=== PATIENT | male | born 1990 | race Asian ===

== ENCOUNTER 2017-04-16 22:44 | Emergency (ER) | payer OTHER ==
[2017-04-16 22:48] VITALS: BP 103/69
--- NOTE | 2017-04-17 02:26 | ED ---
Laceration/Wound HPI - HPI Summary HPI Summary: Patient presents to the ED with laceration to the superior portion of the right eyebrow which measures 2cm. Superficial and without FB. Patient head collided with another person during a jujitsu. Denies LOC or N/V or visual disturbances. Minimal blood loss. Denies other complaints at this time. - History of Current Complaint Stated Complaint: RT EYEBROW LAC Time Seen by Provider: 04/16/17 22:58 Hx Obtained From: Patient Mechanism of Injury: Sharp/Blunt Trauma Onset/Duration: Sudden Onset Aggravating: Movement Alleviating: Nothing Onset Severity: Mild Current Severity: Mild Pain Intensity: 0 Pain Scale Used: 0-10 Numeric Associated Signs & Symptoms: Negative - Allergy/Home Medications Allergies/Adverse Reactions: Allergies Allergy/AdvReac Type Severity Reaction Status Date / Time No Known Allergies Allergy Verified 04/14/16 08:25 PMH/Surg Hx/FS Hx/Imm Hx Previously Healthy: Yes Endocrine/Hematology History: Denies: Hx Diabetes, Hx Thyroid Disease Cardiovascular History: Denies: Hx Hypertension, Hx Pacemaker/ICD Respiratory History: Denies: Hx Asthma, Hx Chronic Obstructive Pulmonary Disease (COPD) GI History: Denies: Hx Ulcer Sensory History: Denies: Hx Hearing Aid Psychiatric History: Denies: Hx Panic Disorder - Surgical History Surgery Procedure, Year, and Place: nasal BONE repair FOR TRAUMA TO FACE; wisdom teeth - Immunization History Hx Pertussis Vaccination: No Immunizations Up to Date: Unable to Obtain/Confirm Infectious Disease History: Denies: Hx Clostridium Difficile, Hx Hepatitis, Hx Human Immunodeficiency Virus (HIV), Hx of Known/Suspected MRSA, Hx Shingles, Hx Tuberculosis, Hx Known/ Suspected VRE, Hx Known/Suspected VRSA, History Other Infectious Disease, Traveled Outside the [place] in Last 30 Days - Social History Occupation: Student Lives: Alone Alcohol Use: Rare Hx Substance Use: Yes Substance Use Type: Reports: Marijuana Hx Tobacco Use: No Smoking Status (MU): Never Smoked Tobacco Do You Chew or Dip Tobacco: No Review of Systems Constitutional: Negative Eyes: Negative Cardiovascular: Negative Respiratory: Negative Positive: no symptoms reported, see HPI Musculoskeletal: Negative Positive: Other - 2m laceration to the right upper eyebrow Neurological: Negative Psychological: Normal All Other Systems Reviewed And Are Negative: Yes Physical Exam Triage Information Reviewed: Yes Vital Signs On Initial Exam: Initial Vitals Temp Pulse Resp BP Pulse Ox 98.2 F 79 18 103/69 99 04/16/17 22:46 04/16/17 22:46 04/16/17 22:46 04/16/17 22:46 04/16/17 22:46 Vital Signs Reviewed: Yes Appearance: Positive: Well-Appearing, Well-Nourished Skin: Positive: Warm, Skin Color Reflects Adequate Perfusion, Other - 2m laceration to the right upper eyebrow Head/Face: Positive: Normal Head/Face Inspection Eyes: Positive: Normal, [place] Neck: Positive: Supple, No Lymphadenopathy Respiratory/Lung Sounds: Positive: Clear to Auscultation, Breath Sounds Present Cardiovascular: Positive: Normal, RRR, Pulses are Symmetrical in both Upper and Lower Extremities Musculoskeletal: Positive: Normal, Strength/ROM Intact Neurological: Positive: Normal, Sensory/Motor Intact, Alert, Oriented to Person Place, Time, Speech Normal Psychiatric: Positive: Normal AVPU Assessment: Alert Procedures - Laceration/Wound Repair 1 Location: head Description: Linear Betadine Prep?: No Irrigated w/ Saline (ccs): 20 Laceration/Wound Explored: no foreign body removed Suture Type: Prolene Number of Sutures: 5 Layer Closure?: No Sterile Dressing Applied?: No Diagnostics - Vital Signs Vital Signs Temp Pulse Resp BP Pulse Ox 04/16/17 22:46 98.2 F 79 18 103/69 99 - Laboratory Lab Statement: Any lab studies that have been ordered have been reviewed, and results considered in the medical decision making process. Laceration Repair Course/Dx - Course Course Of Treatment: Cleansed wound. Lidocaine without epi as local anesthetic. 6-0 non-absorbable prolene. 5 sutures placed. Patient tolerated well. Cleaned and dressed wound with telfa dressing. Sutures out in 5 days. Return precautions given. Patient OK with discharge. - Differential Dx Differental Diagnoses: Abrasion, Laceration, Puncture Wound - Clinical Impression Provider Diagnoses: Laceration of eyebrow Discharge - Discharge Plan Condition: Stable Disposition: HOME Patient Education Materials: Care For Your Stitches (ED) Referrals: Bassem Murphy MD [Primary Care Provider] - Additional Instructions: Sutures out in 5 days Images - Images Head: 1 - 2cm harry - superficial
== END 2017-04-17 00:44 | disposition home or self-care (01) ==
LOC: ED 22:44
DX: S01.111A Laceration without foreign body of right eyelid and periocular area, initial encounter (principal); W51.XXXA Accidental striking against or bumped into by another person, initial encounter; Y93.75 Activity, martial arts; Y92.9 Unspecified place or not applicable; F12.90 Cannabis use, unspecified, uncomplicated
CPT/HCPCS: 12011; 99281